=== PATIENT | female | born 1940 | race Caucasian/White ===

== ENCOUNTER 2017-01-22 16:41 | Emergency (ER) | payer MEDICARE, BC ==
--- NOTE | ~2017-01-22 | US85 ---
[facility] A Service [facility] RADIOLOGY TEXT RESULTS PATIENT: BERNARD ROCHA LOCATION: SED : 40 UNIT #: [id number] AGE: [address]: Joe Newman MD SEX: F ORDER DR: [id number] [place] [id number] E MR#: [id number] Acc #: [id number] NAME: BERNARD ROCHA : 1940 SEX: F STUDY DATE/TIME: 01/22/2017 18:12 UNIT: SED ROOM: STUDY DESCRIPTION: [facility] Attending Physician: Joe Newman M.D. Ordering Physician: Joe Newman M.D. Primary Care Physician: Adonay Geiger M.D. MEDICAL IMAGING REPORT This report is preliminary unless electronic signature is present. EXAM Left lower extremity venous Doppler. HISTORY Left lower extremity thigh pain x1 day. No known injury. TECHNIQUE Venous ultrasound examination of the left lower extremity was performed using grayscale, spectral Doppler and color flow Doppler imaging. FINDINGS The examination is negative. There is no evidence of left lower extremity deep venous thrombus from the groin to the lower calf. Visualized greater saphenous vein is also patent. IMPRESSION Negative examination. No evidence of left lower extremity deep venous thrombosis. Dictated by... Johny Freed M.D. THIS IS AN ELECTRONICALLY VERIFIED REPORT Johny Freed M.D. at 01/23/2017 3:09 PM HARMAN/emigdio TD: 01/23/2017 09:33 JOB #: [id number] MEDICAL IMAGING REPORT [facility] A Service [facility] RADIOLOGY TEXT RESULTS PATIENT: BERNARD ROCHA LOCATION: SED : 40 UNIT #: [id number] AGE: [address]: Joe Newman MD SEX: F ORDER DR: Page 1 of 1
[~2017-01-22 16:41] MED LIST: AMBIEN10 MG PO; ANTIVERT PO; ASPIRIN PO; AVAPRO PO; BENADRYL25 MG; BENADRYL25 MG PO; CRESTOR PO; DIAZEPAM PO; FIORICET PO; ISTALOL 0.5% OD; KROGER; LEXAPRO PO; LOPRESSOR PO; MIDRIN CAPSULE1 CAP PO; NEURONTIN PO; OPTHALMIC OU; OXAPROZIN600 MG PO; PATIENT'S PHARMACY; PHARMACY; PHYSCIAN; SULAR PO; SYNTHROID PO; VIT B-12 IM; XYZAL5 MG; [UNRECOGNIZED DRUG - OTHER] OD; [UNRECOGNIZED DRUG - OTHER] OU
[2017-01-22] MEDS ORDERED: DIAZEPAM PO (16:49)
[2017-01-22] MEDS ORDERED: SIMVASTATIN20 MG PO (16:49)
[2017-01-22] MEDS ORDERED: AMBIEN10 MG PO (16:49)
[2017-01-22] MEDS ORDERED: SYNTHROID0.05 MG PO (16:49)
[2017-01-22] MEDS ORDERED: LOSARTAN POTAS100 MG PO (16:49)
[2017-01-22 17:53] LABS: BASOPHIL# 0.1 X10e3 (0-0.3); BASOPHIL% 0.7 % (0-2.5); EOSINOPHIL# 0.1 X10e3 (0-0.7); EOSINOPHIL% 1.7 % (0.0-7.0); HEMATOCRIT 37.7 % (35.0-45.0); HEMOGLOBIN 12.6 gm/dL (12.0-16.0); LYMPHOCYTE# 1.6 X10e3 (1.0-3.5); LYMPHOCYTE% 22.8 % (17.0-45.0); MEAN CELL VOLUME 90.5 FL (83-96); MEAN CORPUSCULAR HEMOGLOBIN 30.3 PG (28-34); MEAN CORPUSCULAR HGB CONC 33.5 g/dL (30-36); MONOCYTE# 0.7 X10e3 (0-1.0); MONOCYTE% 9.8 % (3.0-12.0); NEUTROPHIL# 4.6 X10e3 (1.5-7.1); PLATELET COUNT 198 X10e3 (140-420); RED BLOOD COUNT 4.16 X10e (3.90-5.30); RED CELL DISTRIBUTION WIDTH 13.5 % (11.0-15.5); WHITE BLOOD COUNT 7.1 X10e3 (4.0-10.5)
[2017-01-22 18:11] LABS: DIFF IND NO
[2017-01-22 18:17] LABS: CALCIUM SERUM 9.1 mg/dL (8.4-10.2); CREATININE SERUM 1.2 mg/dL (0.6-1.4); GLOM FILT RATE Estimated 43.9 mL/min (>60); POTASSIUM 4.5 mmol/L (3.5-5.1)
== END 2017-01-22 19:53 | disposition home or self-care (01) ==
LOC: CED 16:41 → SED 16:41
PROVIDERS: Emergency Medicine
DX: S76.112A Strain of left quadriceps muscle, fascia and tendon, initial encounter (principal); E78.5 Hyperlipidemia, unspecified; Z90.710 Acquired absence of both cervix and uterus; X58.XXXA Exposure to other specified factors, initial encounter
CPT/HCPCS: 36415; 80048; 85025; 85379; 93971; 96374; 96375; 96376; 99284; J2270; J2405

== ENCOUNTER → 2017-01-23 | Outpatient (CLI) | payer MEDICARE, BC ==
[~2017-01-23] MED LIST changes: +LOSARTAN POTAS100 MG PO; +SIMVASTATIN20 MG PO; +SYNTHROID0.05 MG PO
--- NOTE | ~2017-01-23 | CR181 ---
[facility] A Service of [facility] RADIOLOGY TEXT RESULTS PATIENT: BERNARD ROCHA LOCATION: [facility] : 40 UNIT #: [id number] AGE: [address]: Adonay Geiger MD SEX: F ORDER DR: [id number] [facility] [address] [place], [place] [address] [id number] O MR#: [id number] Acc #: [id number] NAME: BERNRAD ROCHA : 1940 SEX: F STUDY DATE/TIME: 01/23/2017 16:33 UNIT: [facility] ROOM: STUDY DESCRIPTION: CR Lumbar Spine 2 or 3 Views Attending Physician: Adonay Geiger M.D. Referring Physician: Adonay Geiger M.D. Ordering Physician: Adonay Geiger M.D. Primary Care Physician: Adonay Geiger M.D. MEDICAL IMAGING REPORT This report is preliminary unless electronic signature is present EXAM Lumbar spine, 3 views. INDICATION Pain, numbness and tingling in the back since January 22. COMPARISON No comparisons. FINDINGS There is grade 1 anterolisthesis of L3 and L4. Multilevel degenerative disc space narrowing with mild anterior osteophyte formation. Multilevel facet arthropathy. Vertebral body heights are maintained. Right upper quadrant surgical clips. IMPRESSION Degenerative changes as described. Dictated by... Darrell Freed M.D. THIS IS AN ELECTRONICALLY VERIFIED REPORT Darrell Freed M.D. at 01/25/2017 3:25 PM JEREMY/robert TD: 01/23/2017 23:26 JOB #: [id number] MEDICAL IMAGING REPORT Page 1 of 1 COPY
== END | disposition home or self-care (01) ==
LOC: CRAD 16:15
DX: M54.9 Dorsalgia, unspecified (principal); R20.0 Anesthesia of skin; R20.2 Paresthesia of skin; M51.36 Other intervertebral disc degeneration, lumbar region
CPT/HCPCS: 72100

== ENCOUNTER → 2017-02-23 | Outpatient (CLI) | payer MEDICARE, BC ==
--- NOTE | ~2017-02-23 | MR113 ---
[facility] A Service of [facility] RADIOLOGY TEXT RESULTS PATIENT: BERNARD ROCHA LOCATION: [facility] : 40 UNIT #: [id number] AGE: [address]: Adonay Geiger MD SEX: F ORDER DR: [id number] [facility] [address] [place], [place] [address] [id number] O MR#: [id number] Acc #: [id number] NAME: BERNARD ROCHA : 1940 SEX: F STUDY DATE/TIME: 02/23/2017 10:19 UNIT: [facility] ROOM: STUDY DESCRIPTION: MR Lumbar Wo Contrast Attending Physician: Adonay Geiger M.D. Referring Physician: Adonay Geiger M.D. Ordering Physician: Adonay Geiger M.D. Primary Care Physician: Adonay Geiger M.D. MRI CENTER REPORT This report is preliminary unless electronic signature is present. EXAM MRI of the lumbar spine without contrast HISTORY 76-year-old female with acute onset of low back pain 1 month ago while getting out of tub. Sharp pain going down left leg. Symptoms for approximately 1 month. TECHNIQUE Multiplanar multiecho imaging was performed of the lumbar spine utilizing a high field magnet dedicated protocol. FINDINGS There is a grade 1 spondylolisthesis L3 on L4 felt to be on the basis of facet arthropathy. No definite pars defects. No focal marrow edema. Normal termination of the conus. At L1-2, there is mild circumferential disc bulging with mild foraminal narrowing but no significant central canal stenosis. At L2-3, there is disc desiccation and circumferential disc bulging and mild foraminal narrowing left greater than right. Mild left L2-3 facet arthropathy. At L3-4, there is mild degenerative disc changes and grade 1 spondylolisthesis. There is a pseudo stenosis at the 3-4 level with compromise of the canal due to the listhesis as well as mild disc bulging and facet disease contributing to moderate central canal stenosis and moderate bilateral foraminal stenosis. At L4-5, minimal disc desiccation. There is mild asymmetric left L4-5 foraminal disc bulging which narrows the left L4-5 foramen. No significant central canal stenosis. Mild facet arthropathy. [facility] A Service of [facility] & [facility] RADIOLOGY TEXT RESULTS PATIENT: BERNARD ROCHA LOCATION: [facility] : 40 UNIT #: [id number] AGE: [address]: Adonay Geiger MD SEX: F ORDER DR: At L5-S1, there is disc desiccation and a circumferential disc bulge with mild foraminal narrowing but no significant central canal stenosis. No definite nerve root impingement. Visualized SI joints, paravertebral soft tissues unremarkable. IMPRESSION Mild multilevel degenerative disc disease as described above in level by level detail. Pseudo stenosis at L3-4 due to a grade 1 spondylolisthesis. Circumferential disc bulging facet arthropathy. This does contribute to moderate central canal stenosis and bilateral foraminal stenosis. Dictated by... Johny Freed M.D. THIS IS AN ELECTRONICALLY VERIFIED REPORT Johny Freed M.D. at 02/27/2017 1:32 PM HARMAN/natasha TD: 02/27/2017 00:15 JOB #: [id number] MRI CENTER REPORT Page 1 of 1 COPY
== END | disposition home or self-care (01) ==
LOC: CMRI 09:13
DX: M51.36 Other intervertebral disc degeneration, lumbar region (principal); M47.816 Spondylosis without myelopathy or radiculopathy, lumbar region; M48.06 Spinal stenosis, lumbar region; M43.16 Spondylolisthesis, lumbar region; M46.96 Unspecified inflammatory spondylopathy, lumbar region; M51.86 Other intervertebral disc disorders, lumbar region
CPT/HCPCS: 72148

== ENCOUNTER → 2017-04-19 | Outpatient (CLI) | payer MEDICARE, BC ==
--- NOTE | ~2017-04-19 | CR184 ---
[facility] A Service of [facility] RADIOLOGY TEXT RESULTS PATIENT: BERNARD ROCHA LOCATION: [facility] : 40 UNIT #: [id number] AGE: [address]: ROHAN YANCEY APRN SEX: F ORDER DR: [id number] [facility] [address] [place], [place] [address] [id number] O MR#: [id number] Acc #: [id number] NAME: BERNARD ROCHA : 1940 SEX: F STUDY DATE/TIME: 04/19/2017 12:05 UNIT: [facility] ROOM: STUDY DESCRIPTION: CR Lumbar Spine Min 4 Views Attending Physician: Rohan Yancey A.P.R.N. Referring Physician: Rohan Yancey A.P.R.N. Ordering Physician: Rohan Yancey A.P.R.N. Primary Care Physician: Adonay Geiger M.D. MEDICAL IMAGING REPORT This report is preliminary unless electronic signature is present EXAM Lumbar spine series HISTORY Spondylolisthesis. Back pain radiating to the left leg since January 2017. COMPARISON 01/23/2017. TECHNIQUE Four views of the lumbar spine were obtained including lateral flexion and extension views. FINDINGS A grade 1 spondylolisthesis is again seen across L3-4. It has not progressed since the previous exam. Advanced facet arthropathy is seen at L3-4, L4-5 and L5-S1. No acute bony abnormalities are noted. Comparison of flexion and extension views shows no significant change in the degree of spondylolisthesis between flexion and extension. Alignment at the other lumbar levels is also unchanged between flexion and extension. IMPRESSION No change in degenerative disc disease since the previous exam of 01/23/2017. The degree of spondylolisthesis at L3-4 is unchanged and stable between flexion and extension. Dictated by... Hermilo Cho M.D. THIS IS AN ELECTRONICALLY VERIFIED REPORT Hermilo Cho M.D. at 04/20/2017 4:57 PM [facility] A Service of [facility] RADIOLOGY TEXT RESULTS PATIENT: BERNARD ROCHA LOCATION: [facility] #: [id number] : 40 UNIT #: [id number] AGE: [address]: ROHAN YANCEY APRN SEX: F ORDER DR: ISSAC/jesus TD: 04/20/2017 12:56 JOB #: [id number] MEDICAL IMAGING REPORT Page 1 of 1 COPY
== END | disposition home or self-care (01) ==
LOC: CRAD 11:22
DX: M43.16 Spondylolisthesis, lumbar region (principal); M51.36 Other intervertebral disc degeneration, lumbar region
CPT/HCPCS: 72110